=== PATIENT | male | born 1995 | race Caucasian/White ===

== ENCOUNTER 2016-06-19 01:24 | Inpatient (IN) | payer BC ==
[~2016-06-19] VITALS: Ht 180.3 cm; Wt 65.8 kg
[2016-06-19] VITALS (10 sets, daily range): BP systolic 89–122; BP diastolic 45–77; PULSE 55–87; TEMP 98–98.1
[2016-06-19] MEDS ORDERED: NORCO 325 MG-51 TAB PO (12:32)
[2016-06-19] MEDS ORDERED: MOTRIN 600600 MG/TAB PO (12:33)
[2016-06-19] MEDS ORDERED: ZOFRAN ODT4 MG PO (12:33)
[2016-06-19] MEDS ORDERED: COLACE 100100 MG/CAP PO (12:33)
== END 2016-06-19 18:08 | disposition home or self-care (01) | DRG 201 ==
LOC: COL.ER 01:24 → SURG 02:29
PROVIDERS: Surgery
PROC: 0W9B00Z Drainage of Left Pleural Cavity with Drainage Device, Open Approach (ICD-10-PCS; principal; 2016-06-19 12:05)
DX: J93.0 Spontaneous tension pneumothorax (principal)
CPT/HCPCS: J1885; J2250; J3010; J7030

== ENCOUNTER → 2016-06-24 | Outpatient (CLI) | payer BC ==
[~2016-06-24] MED LIST: COLACE 100100 MG/CAP PO; MOTRIN 600600 MG/TAB PO; NORCO 325 MG-51 TAB PO; ZOFRAN ODT4 MG PO
== END ==
LOC: COL.RAD 11:10
DX: J93.9 Pneumothorax, unspecified (principal)

== ENCOUNTER → 2016-06-27 | Outpatient (CLI) | payer BC | LOC: COL.RAD 14:52 | DX: Z13.89 Encounter for screening for other disorder (principal) ==

== ENCOUNTER → 2016-06-28 | Outpatient (CLI) | payer BC | LOC: COL.RAD 09:38 | DX: J93.83 Other pneumothorax (principal) ==